=== PATIENT | female | born 1950 | race Caucasian/White ===

== ENCOUNTER 2023-09-30 09:16 | Inpatient (IN) | payer MEDICARE ==
[2023-09-30] MEDS ORDERED: HYDROcodone/Acetaminophen 10/325 mg Tablet PO PRN (16:56)
[2023-09-30] MEDS ORDERED: Bisacodyl 5 MG TAB PO PRN (17:04)
[2023-09-30] MEDS ORDERED: Ondansetron ODT 4 MG TAB SL PRN (17:04)
[2023-09-30] MEDS: Ferrous Sulfate 325 MG TAB PO SCH (18:27)
[2023-09-30] MEDS: Acetaminophen 325 MG TAB PO PRN (18:28)
[2023-09-30] MEDS: traMADol HCl 50 MG TAB PO PRN (18:29)
[2023-09-30] MEDS: Diclofenac 25 MG DR.TAB PO SCH (22:13)
[2023-09-30] MEDS: Famotidine 20 MG TAB PO SCH (22:14)
[2023-09-30] MEDS: DULoxetine 30 MG CAP PO SCH (22:14)
[2023-09-30] MEDS: traZODone HCl 50 MG TAB PO SCH (22:14)
[2023-09-30] MEDS: HYDROcodone/Acetaminophen 10/325 mg Tablet PO PRN (22:14)
[2023-09-30] MEDS: Apixaban 5 MG TAB PO SCH (22:14)
[2023-10-01 05:55] LABS: #Eosinphils 0.2 thou/uL (0.0-0.7); #Monocytes 0.5 thou/uL (0.11-0.59); #Neutrophils 5.7 thou/uL (1.40-6.50); %Basophils 0.4 % (0.0-1.0); %Eosinophils 1.9 % (0.0-10.0); %Lymphocytes 23.8 % (21.0-51.0); %Monocytes 5.6 % (0.0-10.0); %Neutrophils 68.2 % (42.0-75.0); Hematocrit 31.5 % (36.0-47.0); Hemoglobin 10.7 g/dL (12.0-16.0); Mean Corpuscular HGB CONC 33.8 g/dL (32.0-36.0); Mean Corpuscular Hemoglobin 34.1 pg (27.0-31.0); Mean Platelet Volume 5.1 fL (7.4-10.4); Platelet Count 482 10x3/uL (130-400); RBC Distribution Width 11.6 % (11.5-14.5); Red Blood Cell (RBC) Count 3.13 mill/uL (4.20-5.40); White Blood Cell (WBC) Count 8.3 10x3/uL (4.8-10.8)
[2023-10-01 06:11] LABS: ALT (SGPT) 15 U/L (8-55); AST (SGOT) 13 U/L (5-34); Alkaline Phosphatase 123 U/L (40-110); Anion Gap 13 mmol/L (10-20); BUN (Urea Nitrogen) 10 mg/dL (9.8-20.1); Bilirubin, Total 0.4 mg/dL (0.2-1.2); Calc. Creatinine Clearance 107 mL/min (70-130); Calcium 8.7 mg/dL (7.8-10.44); Carbon Dioxide 27 mmol/L (23-31); Chloride 97 mmol/L (98-107); Estimated GFR 96; Globulin 2.9 g/dL (2.4-3.5); Glucose 86 mg/dL (83-110); Potassium 3.8 mmol/L (3.5-5.1); Protein, Total 5.9 g/dL (5.8-8.1); Sodium 133 mmol/L (136-145)
[2023-10-01] MEDS: Potassium Chloride 10 MEQ TAB PO SCH (08:15)
[2023-10-01] MEDS: Furosemide 20 MG TAB PO SCH (08:17)
[2023-10-01] MEDS: hydrOXYzine Pamoate 25 mg Capsule PO PRN (08:47)
[2023-10-01] MEDS ORDERED: Furosemide 20 MG TAB PO PRN (12:31)
[2023-10-01] MEDS: Midodrine HCl 5 MG TAB PO SCH (14:00)
[2023-10-04] MEDS: traMADol HCl 50 MG TAB PO PRN (08:01)
[2023-10-04] MEDS: Acetaminophen 325 MG TAB PO PRN (08:02)
[2023-10-04] MEDS: Midodrine HCl 5 MG TAB PO SCH (20:34)
[2023-10-05 05:57] LABS: #Lymphocytes 1.5 thou/uL (1.20-3.40); #Monocytes 0.4 thou/uL (0.11-0.59); #Neutrophils 4.4 thou/uL (1.40-6.50); %Basophils 0.7 % (0.0-1.0); %Eosinophils 3.7 % (0.0-10.0); %Lymphocytes 22.5 % (21.0-51.0); %Monocytes 6.1 % (0.0-10.0); %Neutrophils 66.9 % (42.0-75.0); Hematocrit 29.1 % (36.0-47.0); Hemoglobin 9.7 g/dL (12.0-16.0); Mean Corpuscular HGB CONC 33.5 g/dL (32.0-36.0); Mean Corpuscular Hemoglobin 34.2 pg (27.0-31.0); Platelet Count 603 10x3/uL (130-400); RBC Distribution Width 11.7 % (11.5-14.5); Red Blood Cell (RBC) Count 2.85 mill/uL (4.20-5.40); White Blood Cell (WBC) Count 6.5 10x3/uL (4.8-10.8)
[2023-10-05 05:58] LABS: #Eosinphils 0.2 thou/uL (0.0-0.7)
[2023-10-05 06:17] LABS: Anion Gap 12 mmol/L (10-20); BUN (Urea Nitrogen) 16 mg/dL (9.8-20.1); Calc. Creatinine Clearance 90 mL/min (70-130); Carbon Dioxide 27 mmol/L (23-31); Chloride 102 mmol/L (98-107); Estimated GFR 93; Glucose 106 mg/dL (83-110); Potassium 4.4 mmol/L (3.5-5.1); Sodium 137 mmol/L (136-145)
[2023-10-05 06:18] LABS: Calcium 8.7 mg/dL (7.6-10.4)
[2023-10-07] MEDS: Ferrous Sulfate 325 MG TAB PO SCH (07:59)
[2023-10-07 11:08] LABS: #Basophils 0.1 thou/uL (0.0-0.2); #Eosinphils 0.1 thou/uL (0.0-0.7); #Lymphocytes 1.2 thou/uL (1.20-3.40); #Monocytes 0.5 thou/uL (0.11-0.59); #Neutrophils 6.3 thou/uL (1.40-6.50); %Basophils 0.6 % (0.0-1.0); %Eosinophils 1.7 % (0.0-10.0); %Monocytes 6.5 % (0.0-10.0); %Neutrophils 77.2 % (42.0-75.0); Hematocrit 34.7 % (36.0-47.0); Hemoglobin 11.4 g/dL (12.0-16.0); Mean Platelet Volume 4.9 fL (7.4-10.4); Platelet Count 673 10x3/uL (130-400); RBC Distribution Width 12.2 % (11.5-14.5); Red Blood Cell (RBC) Count 3.36 mill/uL (4.20-5.40); White Blood Cell (WBC) Count 8.2 10x3/uL (4.8-10.8)
[2023-10-07 11:21] LABS: ALT (SGPT) 42 U/L (8-55); AST (SGOT) 33 U/L (5-34); Albumin 3.6 g/dL (3.4-4.8); Alkaline Phosphatase 169 U/L (40-110); Anion Gap 16 mmol/L (10-20); BUN (Urea Nitrogen) 10 mg/dL (9.8-20.1); Bilirubin, Total 0.4 mg/dL (0.2-1.2); Calc. Creatinine Clearance 91 mL/min (70-130); Calcium 9.2 mg/dL (7.8-10.44); Carbon Dioxide 26 mmol/L (23-31); Chloride 98 mmol/L (98-107); Estimated GFR 93; Globulin 3.2 g/dL (2.4-3.5); Glucose 103 mg/dL (83-110); Potassium 4.7 mmol/L (3.5-5.1); Protein, Total 6.8 g/dL (5.8-8.1); Sodium 135 mmol/L (136-145)
[2023-10-10 06:31] VITALS: BMI 23.8
[2023-10-10] MEDS: Senokot S 8.6-50 MG TAB PO PRN (08:12)
[2023-10-14 06:30] LABS: Hemoglobin 11.5 g/dL (12.0-16.0); Platelet Count 500 10x3/uL (130-400)
[2023-10-15 07:41] VITALS: BP 107/54; TEMP 98.5
== END 2023-10-15 12:30 | disposition home or self-care (01) | DRG 560 ==
LOC: NAV ACUTE 17:22
PROVIDERS: ADMIT Family Medicine; ATTEND Family Medicine
DX: Z47.1 Aftercare following joint replacement surgery (principal); I48.20 Chronic atrial fibrillation, unspecified; I50.9 Heart failure, unspecified; Z96.651 Presence of right artificial knee joint; Z96.641 Presence of right artificial hip joint; I95.1 Orthostatic hypotension; F41.9 Anxiety disorder, unspecified; F32.A Depression, unspecified; D64.9 Anemia, unspecified; D75.839 Thrombocytosis, unspecified; Z90.49 Acquired absence of other specified parts of digestive tract; Z90.710 Acquired absence of both cervix and uterus
CPT/HCPCS: 36415; 36416; 80048; 80053; 85014; 85018; 85025; 85049; Q0177